=== PATIENT | male | born 1965 | race Caucasian/White ===

== ENCOUNTER 2018-04-03 20:03 | Emergency (ER) | payer OTHER ==
--- NOTE | 2018-04-03 20:14 | EDPHY ---
H & P Time Seen by Provider: 04/03/18 20:13 HPI/ROS: Chief complaint: Sore throat, headache, STD exposure, diarrhea, hoarse voice HPI: 52-year-old male who is under lot of stress between graduate school, break up of a relationship, as well as a daughter who was living on the edge in a gang in [place]. About 2 weeks ago he got notified that his girlfriend had gonorrhea and recommend that he get tested. He himself has not had a drip or discharge fevers or chills nor inguinal adenopathy He has had a sore throat for about 1 month. While I can hear raspiness in his voice thinks it has been there for some time although cannot tell me if it is new. He has had no swelling glands or fever. He has had no sinus pain or sinus headaches would leave forward. In fact he feels little better when he sits up. The headaches themselves are right-sided, posterior occipital parietal, non radiating into the neck. They have been occurring for 1 week, though not daily. Mild to moderate in nature. Not every day. Intermittent. Usually best in the morning. The heat has not gone on. He does have a gas fired water heater. He has not noted any with thing worse while he is driving, however, he does drive a lot for work, but always withthe windows open. He does have a CO detector, but has not gone off. He smokes. He has had diarrhea for numerous years. His last colonoscopy was at age 45 due to a screening, 7 years ago though he is to be on a every 5 year protocol., need as his uncle had had cancer. He does use coffee sparingly but has not admitted it completely from his diet despite the diarrhea. He notes quite a bit of urgency and has tinea were all the bathrooms are secondary to such. ROS: Constitutional - no fevers or chills. ENT - no earache, change in hearing, difficulty swallowing. Respiratory - No Shortness of breath, phlegm, wheezing or pleuritic chest pain. Musculoskeletal - no joint or muscle pain. Integument - no rashes. Neurological - no numbness, tingling, or paresthesias. No focal motor weakness. Immunological - no swelling or lymphadenopathy 10 point ROS otherwise negative Physical Exam: Gen: Well developed, well nourished. Nontoxic. afebrile febrile VSS HEENT: Normocephalic. Ears: TMs are clear. Hearing normal. Eyes: PERRL. No conjunctival injection or pallor. no jaundice. Nose: No nasal discharge. Sinuses are nontender. Throat: Membranes are moist. Oropharynx is without erythema or exudate. Somewhat hoarse voice Neck: Trachea is in the ML. No laryngeal tenderness. Mild anterior triangle adenopathy on the right. No tenderness to the scalene muscles or the cervical spine. Lungs: Good air entry into both lungs. No rales rhonchi or wheezes. No air hunger. No respiratory distress. Genitalia: Descended bilaterally. Circumcised. No masses. No discharge Neurologic: Normal motor and sensation. Normal balance. Able ambulate well without difficulty. Neck is supple Skin: Good color, without pallor. There is no diaphoresis. Skin is warm and dry , without diaphoresis. Intact without rashes Constitutional: Initial Vital Signs Temperature (C) 36.9 C 04/03/18 20:21 Heart Rate 65 04/03/18 20:21 Respiratory Rate 16 04/03/18 20:21 Blood Pressure 123/72 H 04/03/18 20:21 O2 Sat (%) 97 04/03/18 20:21 O2 Delivery Mode Room Air Allergies/Adverse Reactions: No Known Allergies Allergy (Unverified 04/03/18 20:19) Home Medications: Medication Instructions Recorded LORazepam [Ativan 2 mg tab] 04/03/18 LORazepam [Ativan] 1 mg PO DAILY PRN #7 tablet 04/03/18 Passion Flower 04/03/18 Valproic Acid [Depakene 250MG (*)] 04/03/18 lamoTRIgine [Lamictal] 04/03/18 Medical Decision Making ED Course/Re-evaluation: We had a nini discussion regarding follow-up necessary: ear nose and throat due to the change in voice Gastroenterology due to the persistent diarrhea As the headache, I suspect really most likely with a tension headache. However I informed him that he needs a follow-up with risk is headache in the next week , with his PCP. In the interim he will manage with Tylenol ibuprofen. As he has had STD exposure he will receive both Rocephin IM and p.o. Zithromax 2 g. Further, testing being done on his pharynx as well as his nucleic amplification test on the urine. He has declined any testing on the HIV. Differential Diagnosis: Diagnostic considerations include, but are not limited to, the following: Car monoxide poisoning, tension headache, viral syndrome, DC pharyngitis, GC or chlamydia urethritis, anxiety - Data Points Medications Given: Discontinued Medications Azithromycin (Zithromax) 2,000 mg PO EDNOW ONE PRN Reason: Protocol Stop: 04/03/18 21:48 Last Admin: 04/03/18 22:01 Dose: 2,000 mg Ceftriaxone Sodium (Rocephin 250mg Vial) 250 mg IM EDNOW ONE PRN Reason: Protocol Stop: 04/03/18 21:48 Last Admin: 04/03/18 22:10 Dose: 250 mg Point of Care Test Results: Strep Strep Throat Swab Collection 04/03/18 Date Strep Throat Swab Swab 21:00 Collection Time Strep Result Not Detected Departure - Departure Clinical Impression: Change in voice, STD expsoure Acute pharyngitis Qualifiers: Pharyngitis/tonsillitis etiology: unspecified etiology Qualified Code(s): J02.9 - Acute pharyngitis, unspecified Headache Qualifiers: Headache type: unspecified Headache chronicity pattern: acute headache Intractability: not intractable Qualified Code(s): R51 - Headache Diarrhea Qualifiers: Diarrhea type: unspecified type Qualified Code(s): R19.7 - Diarrhea, unspecified Condition: Good Instructions: Pharyngitis (ED), Acute Headache (ED) Additional Instructions: Tylenol and Advil works well together the combination: Tylenol 1000 mg and 600 mg every 8 hours as needed for the pain. Supposed to leave tension with respect to the headache: Ativan 1 mg p.o. At 9:00 p.m. For the next week. Call for the Carbonmonoxide test at 1100pm: [phone] Stop all caffeine. Cause for results in 2 days time: Throat swab for gonorrhea Urine testing for gonorrhea See the referrals for in Nose and Throat and gastrointestinal Referrals: NONE *PRIMARY CARE P,. [Primary Care Provider] - 5-7 days, call for appt. Sariah Escalante MD [Medical Doctor] - As per Instructions Brendan Lockwood MD [Medical Doctor] - As per Instructions Prescriptions: LORazepam [Ativan] 1 mg PO DAILY PRN #7 tablet PRN Reason: For the HEADACHES
[2018-04-03] MEDS ORDERED: AZITHROMYCIN 250 MG TAB PO ONE (21:47)
[2018-04-03] MEDS ORDERED: cefTRIAXone 250 MG VIAL IM ONE (21:47)
[2018-04-03 22:38] VITALS: BP 125/65
== END 2018-04-03 22:25 | disposition home or self-care (01) ==
LOC: CED 20:03
DX: J02.9 Acute pharyngitis, unspecified (principal); R51 Headache; Z20.2 Contact with and (suspected) exposure to infections with a predominantly sexual mode of transmission
CPT/HCPCS: J0696